=== PATIENT | female | born 1955 | race African-American/Black ===

== ENCOUNTER 2016-10-12 16:19 | Emergency (ER) | payer MEDICAID, OTHER ==
[~2016-10-12] VITALS: Ht 160 cm; Wt 76.2 kg
[2016-10-12 17:30] VITALS: BP 133/67
== END 2016-10-12 19:43 | disposition home or self-care (01) ==
LOC: ER 16:26
DX: J20.9 Acute bronchitis, unspecified (principal); E78.5 Hyperlipidemia, unspecified; I10 Essential (primary) hypertension
CPT/HCPCS: 71020